=== PATIENT | female | born 1950 | race Caucasian/White ===

== ENCOUNTER 2017-11-28 07:14 | Inpatient (IN) ==
[2017-11-28] MEDS ORDERED: Bisacodyl 10 MG Supp RECTAL PRN (14:38)
[2017-11-28] MEDS ORDERED: Temazepam 15 MG Capsule PO PRN (14:38)
[2017-11-28] MEDS ORDERED: Dextrose 50% in Water 50 ML Vial IV.PUSH PRN (14:38)
--- NOTE | 2017-11-28 15:41 | P.HPIM ---
History of Present Illness Primary Care Physician: UNKNOWN Chief Complaint: Pain/fall History of Present Illness: The patient is a 67-year-old female with a past medical history of dementia, diabetes and hypertension who is presenting to the hospital after a fall. The patient says that she picked up her dog, who happens to have a history of seizures, and tripped on something. She said she hit the fireplace on the way down. She said that she felt too weak to get back up. She says her was there when she fell but he has a bad back and was unable to help her up. The patient's called for an ambulance. The patient says she is experiencing 10 out of 10 pain in her right shoulder. She was wondering if she would be having surgery today. Her says she recently had her tooth pulled a couple of days ago and she is on antibiotics for that. The patient says that she has been urinating frequently. Inpatient Certification: I certify that the inpatient services were ordered in accordance with Medicare regulations governing the order. This includes certification that hospital inpatient services are reasonable and necessary and in the case of services not specified as inpatient-only under 42 CFR 419.22(n), that they are appropriately provided as inpatient services in accordance to with the 2-midnight benchmark under 43 CFR 412.3(e) Estimated Total Length of Stay (Days): 3 Plans for Post Hospital Care: Not yet determined Review of Systems All other systems reviewed negative except as stated in HPI [facility] - History History Provided By: Patient, Family Member - Medical History Medical History: Medical History (Last Updated 11/28/17 @ 15:39 by Jose Hackett DO) History of hysterectomy Dementia Diabetes Hyperlipidemia Hypertension Murmur, cardiac - Surgical History Surgical History: Surgical History (Last Updated 11/28/17 @ 15:39 by Jose Hackett DO) H/O exploratory laparotomy S/P cholecystectomy H/O tubal ligation H/O: section - Family History Family History: Family History (Last Updated 11/28/17 @ 15:39 by Jose Hacktet DO) Other Prostate cancer - Tobacco History Second Hand Smoke Exposure: No Tobacco Use In Past 30 Days: No Smoking Status: Never smoker - Alcohol History How Often Do You Have a Drink Containing Alcohol: Never - Substance Use History Substance History: No History of Abuse - Immunization History Tetanus Immunization: Unsure Hx Influenza Vaccine This Season: No Medications and Allergies Active Medications: Active Medications Al Hydroxide/Mg Hydroxide (Milk Of Magnesia Liq) 30 ml PO Q12H PRN PRN Reason: Mild Constipation Bisacodyl (Dulcolax Supp) 10 mg RECTAL DAILY PRN PRN Reason: SEVERE CONSITIPATION Dextrose (D50w Vial) 50 ml IV.PUSH UNSCH PRN PRN Reason: PER HYPOGLYCEMIA PROTOCOL Enalaprilat (Vasotec Inj) 1.25 mg IV.PUSH Q6H PRN PRN Reason: SBP> OR = 180, DBP> OR = 100 Last Admin: 11/28/17 15:09 Dose: 1.25 mg Glucagon (Glucagon Inj) 1 mg OTHER PRN PRN PRN Reason: for Hypoglycemia Protocol Insulin Aspart (Novolog Insulin Suppl Scale Inj) 0 unit SQ ACHS JÚNIOR; Protocol Lactulose (Lactulose Liq) 30 ml PO DAILY PRN PRN Reason: SEVERE CONSITIPATION Morphine Sulfate (Morphine Inj) 4 mg IV.PUSH Q4H PRN PRN Reason: BREAKTHROUGH PAIN Oxycodone HCl (Roxicodone) 5 mg PO Q4H PRN PRN Reason: PAIN SCALE 6 TO 10 Last Admin: 11/28/17 15:09 Dose: 5 mg Senna/Docusate Sodium (Donna-Colace) 1 tab PO BID JÚNIOR Sennosides (Senokot) 17.2 mg PO Q12H PRN PRN Reason: Moderate Constipation Temazepam (Restoril) 15 mg PO HS PRN PRN Reason: INSOMNIA Allergies Allergy/AdvReac Type Severity Reaction Status Date / Time penicillin G Allergy Rash Verified 11/28/17 07:22 Home Medications Medication Instructions Recorded Confirmed Type aspirin 81 mg PO DAILY 11/28/17 11/28/17 History carvedilol 12.5 mg PO BID 11/28/17 11/28/17 History folic acid 0.4 mg PO DAILY 11/28/17 11/28/17 History furosemide 20 mg PO DAILY 11/28/17 11/28/17 History insulin glargine [Lantus U-100 40 unit SUB-Q DAILY 11/28/17 11/28/17 History Insulin] isosorbide mononitrate 60 mg PO DAILY 11/28/17 11/28/17 History levothyroxine 75 mcg PO DAILY 11/28/17 11/28/17 History memantine 10 mg PO BID 11/28/17 11/28/17 History rosuvastatin 40 mg PO DAILY 11/28/17 11/28/17 History telmisartan 80 mg PO DAILY 11/28/17 11/28/17 History Exam Vital signs: Vital Signs 11/28/17 14:00 Temperature 98.7 F Pulse Rate 69 Blood Pressure 207/81 H Pulse Oximetry 93 L Intake & Output 11/27/17 11/28/17 11/28/17 18:59 06:59 18:59 Other: Date of Last Bowel Movement 11/27/17 Narrative: GENERAL: No acute distress SKIN: Focused skin assessment warm/dry. HEAD: Atraumatic. Normocephalic. EYES: Pupils equal and round. No scleral icterus. No injection or drainage. ENT: No nasal bleeding or discharge. Mucous membranes pink and moist. NECK: Trachea midline. No JVD. No cervical spine tenderness full painless range of motion of the neck. CARDIOVASCULAR: Regular rate and rhythm. Grade 2 murmur appreciated. RESPIRATORY: No accessory muscle use. Clear to auscultation. Breath sounds equal bilaterally. GASTROINTESTINAL: Abdomen soft, non-tender, nondistended. Hepatic and splenic margins not palpable. MUSCULOSKELETAL: Patient is in a sling. She has tenderness in her right anterior shoulder with limited range of motion due to pain. There is also some minimal tenderness in the right groin. NEUROLOGICAL: Awake and alert. No obvious cranial nerve deficits. Motor grossly within normal limits. Normal speech. Mild confusion. PSYCHIATRIC: Appropriate mood and affect; insight and judgment normal. Caprini VTE Risk Assessment Caprini VTE Risk Assessment: Moderate/High Risk (score >= 2) Caprini Risk Assessment Model: Point Value = 1 Point Value = 2 Point Value = 3 Point Value = 5 Age 41-60 Minor surgery BMI > 25 kg/m2 Swollen legs Varicose veins or History of unexplained or recurrent spontaneous Oral contraceptives or hormone replacement Sepsis (< 1 month) Serious lung disease, including pneumonia (< 1 month) Abnormal pulmonary function Acute myocardial infarction Congestive heart failure (< 1 month) History of inflammatory bowel disease Medical patient at bed rest Age 61-74 Arthroscopic surgery Major open surgery (> 45 min) Laparoscopic surgery (> 45 min) Malignancy Confined to bed (> 72 hours) Immobilizing plaster cast Central venous access Age >= 75 History of VTE Family history of VTE Factor V Leiden Prothrombin [id number] Lupus anticoagulant Anticardiolipin antibodies Elevated serum homocysteine Heparin-induced thrombocytopenia Other congenital or acquired thrombophilia Stroke (< 1 month) Elective arthroplasty Hip, pelvis, or leg fracture Acute spinal cord injury (< 1 month) Prophylaxis Regimen: Total Risk Factor Score Risk Level Prophylaxis Regimen 0-1 Low Early ambulation 2 Moderate Order ONE of the following: *Sequential Compression Device (SCD) *Heparin 5000 units SQ BID 3-4 Higher Order ONE of the following medications: *Heparin 5000 units SQ TID *Enoxaparin/Lovenox 40 mg SQ daily (WT < 150 kg, CrCl > 30 mL/min) *Enoxaparin/Lovenox 30 mg SQ daily (WT < 150 kg, CrCl > 10-29 mL/min) *Enoxaparin/Lovenox 30 mg SQ BID (WT < 150 kg, CrCl > 30 mL/min) AND/OR *Sequential Compression Device (SCD) 5 or more Highest Order ONE of the following medications: *Heparin 5000 units SQ TID (Preferred with Epidurals) *Enoxaparin/Lovenox 40 mg SQ daily (WT < 150 kg, CrCl > 30 mL/min) *Enoxaparin/Lovenox 30 mg SQ daily (WT < 150 kg, CrCl > 10-29 mL/min) *Enoxaparin/Lovenox 30 mg SQ BID (WT < 150 kg, CrCl > 30 mL/min) AND *Sequential Compression Device (SCD) Assessment and Plan - Plan Fractures S/p mechanical fall at home. Imaging revealed: Comminuted displaced fracture of the humeral head with fracture fragments of the humeral head displaced posteriorly; Right superior pubic ramus fracture, nondisplaced. - orthopedic surgery consult pending. - keep the pt NPO with IVFs. - anticoagulation and weightbearing per surgery. - pain control with a bowel regimen. - rehab efforts following surgery. - incentive spirometry. HTN Blood pressure exacerbated by pain. - pain control. - Vasotec as needed. - resume home regimen. Renal insufficiency/Hyponatremia Unsure of baseline. May be s/t dehydration. - IVFs and monitor BMP. Recent tooth extraction Currently on clindamycin. - resume antibiotic regimen. Dementia Chronic. - continue home regimen. PPx: Per surgery Code Status: Full Discussed Condition With: Pt, pt's , nurse, ER physician H&P: Quality - VTE Deep Vein Thrombosis/Pulmonary Embolism Present on Admission: No
[2017-11-28] MEDS: Insulin NovoLOG Aspart Correctional Sugar Inj SQ SCH ×2 (16:37→20:37)
[2017-11-28] MEDS: Sod Chloride 0.9% Inj 1,000 ML IV.CONT SCH ×2 (16:37→20:36)
[2017-11-28] MEDS: Morphine Inj 4 MG/ML Vial IV.PUSH PRN ×2 (16:43→20:18)
[2017-11-28] MEDS: Senna/Docusate Sodium 8.6/50 MG Tablet PO SCH (20:19)
[2017-11-28] MEDS: Carvedilol 12.5 MG Tablet PO SCH (20:19)
[2017-11-29] MEDS ORDERED: Chlorhexidine Gluconate 2% 1 Pack (2 Cloths) TOPICAL SCH (02:30)
[2017-11-29] MEDS ORDERED: Sodium Chlor 0.9% Inj 500 ML IV.SIG SCH (03:00)
[2017-11-29] MEDS: Sod Chloride 0.9% Inj 1,000 ML IV.CONT SCH (04:14)
[2017-11-29] MEDS: LEVOTHYROXIN PO SCH (05:27)
[2017-11-29] MEDS ORDERED: Levothyroxine 75 MCG Tablet PO SCH (06:00)
--- NOTE | 2017-11-29 06:53 | P.PNOP ---
Subjective Interval history: Slip and fall yesterday with dog. She has some confusion this morning. She complains of right shoulder pain. No other complaints Physical Exam Vital signs: Vital Signs 11/28/17 14:00 11/28/17 15:39 11/28/17 16:00 Temperature 98.7 F 98.1 F Pulse Rate 69 70 Respiratory Rate 18 24 Blood Pressure 207/81 H 160/99 H Pulse Oximetry 93 L 70 L 11/28/17 16:45 11/28/17 19:00 11/28/17 21:00 Temperature 97.5 F L Pulse Rate 68 Respiratory Rate 18 17 Blood Pressure 194/81 H 178/79 H Pulse Oximetry 98 11/29/17 00:20 11/29/17 03:47 Temperature 97.9 F 97.8 F Pulse Rate 66 69 Respiratory Rate 18 18 Blood Pressure 148/69 H 160/70 H Pulse Oximetry 95 96 Intake & Output 11/28/17 11/28/17 11/29/17 06:59 18:59 06:59 Intake Total 450 / 450 0 / 0 Output Total 525 / 525 1075 / 1075 Balance -75 / -75 -1075 / -1075 Weight 91.626 kg 91.6 kg Intake: Oral 450 / 450 0 / 0 Output: Urine 525 / 525 1075 / 1075 Other: Date of Last Bowel Movement 11/27/17 11/27/17 # Bowel Movements 0 Weight On Admission 91.626 kg Narrative: Right upper extremity: Skin is intact. Moderate swelling. Pain to palpation and movement of proximal humerus. No pain with elbow wrist or fingers. Distally intact sensation full extension flexion of fingers. Left upper extremity: Full range of motion neurovascularly intact Bilateral lower extremities: Full range of motion and neurovascularly intact - Urinary Catheter Management Indwelling Urethral Catheter Cath placed during this visit: yes Reason for continuing: Hourly intake/output Insertion date: 11/28/17 Insertion time: 15:30 Results - Labs Laboratory Results - last 24 hr 11/28/17 11/28/17 16:29 20:27 POC Glucose 201 H 198 H Assessment and Plan - Assessment and Plan Right proximal humerus fracture Nonweightbearing right upper extremity Orthotec for application of sling and swath Treatment options discussed which include conservative measures with sling and swath and hanging arm cast in office, open reduction internal fixation and right shoulder replacement. At this time given the alignment and activity level conservative measures are reasonable treatment with comorbidity of diabetes. She wishes to talk to her at this time concerning the matter. If decision to treat conservatively is decided on, she will remain in sling and swath at all times with no range of motion and nonweightbearing. She will follow-up in office in 1 week for repeat x-rays and probable hanging arm cast application. She will remain n.p.o. for the time being.
--- NOTE | 2017-11-29 07:56 | MB ---
cc: Stalin Escoto MD DATE: 11/29/2017 REASON FOR CONSULTATION: Right proximal humerus fracture. HISTORY OF PRESENT ILLNESS: Angeli is a 67-year-old female who has multiple medical problems including early dementia, diabetes and hypertension. She states that she slipped and fell at home. She picked up her dog to move it. She was putting the dog down when she lost her balance. She fell and landed on her right side. She had immediate right shoulder pain. She denies dizziness, syncope or loss of consciousness. Her only complaint is her right shoulder. Pain is worse with movement and is improved with rest. PAST MEDICAL HISTORY: Illnesses, diabetes, hypertension, high cholesterol, heart murmur and early dementia. PAST SURGICAL HISTORY: Hysterectomy, exploratory laparotomy, cholecystectomy, tubal ligation and . FAMILY HISTORY: Positive for prostate cancer in her father. ALLERGIES: PENICILLIN. SOCIAL HISTORY: The patient denies alcohol, tobacco or drug use. MEDICATIONS: Include: 1. Aspirin. 2. Carvedilol. 3. Folic acid. 4. Lasix. 5. Insulin. 6. Isosorbide mononitrate. 7. Levothyroxine. 8. Amantadine. Please see EMR for a complete list of inpatient medications. REVIEW OF SYSTEMS: The patient denies fevers, chills, weight loss, headache, visual changes, hearing loss, chest pain, palpitations, shortness of breath, nausea, vomiting, urinary changes, diarrhea, bowel changes, neck pain, back pain, skin rashes, weakness of extremities, numbness of extremities, anxiety or depression. She complains of right shoulder pain. The pain is worse with movement. LABORATORY DATA: The patient has a blood glucose of 198. X-RAYS: X-rays right shoulder reviewed. X-rays reveal a partially displaced right proximal humerus 3-part fracture. PHYSICAL EXAMINATION: GENERAL: The patient is a pleasant 67-year-old female. She is awake and alert. She does have memory trouble and has trouble speaking some words. She is mildly overweight. She is in no acute distress. VITAL SIGNS: Temperature 97.8, pulse 69, respirations 18, blood pressure 160/70, O2 saturations 100% on room air. HEAD: The patient is normocephalic. EYES: Pupils are equal. NECK: Soft, nontender. The trachea is in the midline. ABDOMEN: Soft, nontender, nondistended. EXTREMITIES: Examination of the right upper extremity reveals some swelling and bruising on her shoulder. She has pain with any shoulder motion. She has no tenderness on her elbow, wrist or fingers. She has intact sensation in all fingers. Skin is intact. She has good capillary refill in her fingers. Examination of her left arm reveals no pain with shoulder, elbow or wrist motion. Skin is intact. Radial pulses palpable. Sensation is intact. Examination of bilateral lower extremities reveals no pain with hip, knee or ankle motion. Skin is intact. Dorsalis pedis pulses are palpable. IMPRESSION: 1. Early dementia. 2. Diabetes. 3. Hypertension. 4. Partially displaced right proximal humerus fracture. PLAN: Treatment options were discussed with the patient, as well as her . I discussed treatment options including nonsurgical, surgical treatment with open reduction internal fixation, and surgical treatment with shoulder replacement. Risks of surgery were discussed including bleeding, infection, injury to arteries, nerves or blood vessels, nonunion, malunion, painful hardware, loss of motion, avascular necrosis, shoulder dislocation as well as medical complications including blood clot, stroke, heart attack and . All questions were answered. Given the patient's age, overall health condition, and relatively sedentary lifestyle, I feel that she would do relatively well with nonoperative treatment. The patient and her would like to discuss this further between themselves. I will followup with the patient later today or tomorrow for a final decision regarding surgery. All questions were answered. A mid-level provider in my office, nurse practitioner or PA, may see this patient on a follow-up basis and continue to implement the objective of this plan including: Starting or adjusting medications, injections of muscle, tendon, bursa or joints, cast application, orthotic or brace application, physical therapy, further radiographic studies including x-ray, MRI, CT, ultrasounds or bone scan, vascular studies, neurologic studies, or other specialist consultations, and proceeding with surgical management as appropriate. MD MEGAN Hutcihson/YESI , 07:35 AM , 07:55 AM
[2017-11-29] MEDS: Carvedilol 12.5 MG Tablet PO SCH ×2 (08:26→22:03)
[2017-11-29] MEDS: Insulin NovoLOG Aspart Correctional Sugar Inj SQ SCH ×4 (08:26→22:04)
[2017-11-29] MEDS: Senna/Docusate Sodium 8.6/50 MG Tablet PO SCH ×2 (08:27→22:04)
[2017-11-29] MEDS: Folic Acid 1 MG Tablet PO SCH (08:27)
[2017-11-29] MEDS: Isosorbide Mononitrate 60 MG ER 24HR Tablet (Imdur) PO SCH (08:27)
[2017-11-29] MEDS ORDERED: Non-Formulary Drug (Rosuvastatin [Rosuvastatin] 40 MG) PO SCH (09:00)
[2017-11-29] MEDS ORDERED: TELMISARTAN 80 MG PO SCH (09:00)
[2017-11-29 10:51] LABS: Hematocrit 29.4 % (35.0-46.0); Hemoglobin 9.8 gm/dL (11.6-15.3); Mean Corpuscular HGB Conc 33.4 % (32.0-36.0); Mean Corpuscular Hemoglobin 26.2 pg (27.0-34.0); Mean Corpuscular Volume 78.3 fL (80.0-100.0); Platelet Count 191 th/mm3 (150-450); Red Blood Count 3.75 mil/mm3 (4.00-5.30); Red Cell Distribution Width 14.2 % (11.6-17.2); White Blood Count 6.1 th/mm3 (4.0-11.0)
[2017-11-29 10:53] LABS: Calcium 7.6 mg/dL (8.5-10.1); Potassium 4.6 meq/L (3.5-5.1)
[2017-11-29] MEDS: Insulin Detemir Inj 1,000 UNIT/10 ML Vial SQ SCH (12:11)
[2017-11-29] MEDS: Morphine Inj 4 MG/ML Vial IV.PUSH PRN (13:18)
--- NOTE | 2017-11-29 13:28 | P.PNIM ---
Subjective Interval history: The patient was thinking that she would rather not have surgery. The patient's states that he talked with the surgeon earlier this morning about the options. The patient still has a lot of pain in her right shoulder. She has a lot of swelling as well. Discussed with nursing. Physical Exam Vital signs: Vital Signs 11/28/17 14:00 11/28/17 15:39 11/28/17 16:00 Temperature 98.7 F 98.1 F Pulse Rate 69 70 Respiratory Rate 18 24 Blood Pressure 207/81 H 160/99 H Pulse Oximetry 93 L 70 L 11/28/17 16:45 11/28/17 19:00 11/28/17 21:00 Temperature 97.5 F L Pulse Rate 68 Respiratory Rate 18 17 Blood Pressure 194/81 H 178/79 H Pulse Oximetry 98 11/29/17 00:20 11/29/17 03:47 11/29/17 08:00 Temperature 97.9 F 97.8 F 98.2 F Pulse Rate 66 69 72 Respiratory Rate 18 18 20 Blood Pressure 148/69 H 160/70 H 187/82 H Pulse Oximetry 95 96 93 L Intake & Output 11/28/17 11/29/17 11/29/17 18:59 06:59 18:59 Intake Total 450 / 450 0 / 0 Output Total 525 / 525 1075 / 1075 Balance -75 / -75 -1075 / -1075 Weight 91.626 kg 91.6 kg Intake: Oral 450 / 450 0 / 0 Output: Urine 525 / 525 1075 / 1075 Other: Date of Last Bowel Movement 11/27/17 11/27/17 11/27/17 # Bowel Movements 0 Weight On Admission 91.626 kg Narrative: GENERAL: No acute distress SKIN: Focused skin assessment warm/dry. HEAD: Atraumatic. Normocephalic. EYES: Pupils equal and round. No scleral icterus. No injection or drainage. ENT: No nasal bleeding or discharge. Mucous membranes pink and moist. NECK: Trachea midline. No JVD. No cervical spine tenderness full painless range of motion of the neck. CARDIOVASCULAR: Regular rate and rhythm. Grade 2 murmur appreciated. RESPIRATORY: No accessory muscle use. Clear to auscultation. Breath sounds equal bilaterally. GASTROINTESTINAL: Abdomen soft, non-tender, nondistended. Hepatic and splenic margins not palpable. MUSCULOSKELETAL: Patient is in a sling. She has tenderness in her right anterior shoulder with limited range of motion due to pain. There is also some minimal tenderness in the right groin. NEUROLOGICAL: Awake and alert. No obvious cranial nerve deficits. Motor grossly within normal limits. Normal speech. Mild confusion. PSYCHIATRIC: Appropriate mood and affect; insight and judgment normal. - Urinary Catheter Management Indwelling Urethral Catheter Cath placed during this visit: yes Reason for continuing: Hourly intake/output Insertion date: 11/28/17 Insertion time: 15:30 Results - Labs CBC & Chem 7: 11/29/17 09:20 11/29/17 09:20 Laboratory Results - last 24 hr 11/28/17 11/28/17 11/29/17 16:29 20:27 08:21 WBC RBC Hgb Hct MCV MCH MCHC RDW Plt Count MPV Sodium Potassium Chloride Carbon Dioxide Anion Gap BUN Creatinine Estimated GFR POC Glucose 201 H 198 H 287 H Random Glucose Calcium 11/29/17 11/29/17 11/29/17 09:20 09:20 12:07 WBC 6.1 RBC 3.75 L Hgb 9.8 L Hct 29.4 L MCV 78.3 L MCH 26.2 L MCHC 33.4 RDW 14.2 Plt Count 191 MPV 8.0 Sodium 134 L Potassium 4.6 Chloride 102 Carbon Dioxide 19.0 L Anion Gap 13 BUN 19 H Creatinine 1.32 H Estimated GFR 40 L POC Glucose 223 H Random Glucose 230 H Calcium 7.6 L Assessment and Plan - Plan Fractures S/p mechanical fall at home. Imaging revealed: Comminuted displaced fracture of the humeral head with fracture fragments of the humeral head displaced posteriorly; Right superior pubic ramus fracture, nondisplaced. Orthopedic surgery consult appreciated. - anticoagulation and weightbearing per surgery. - pain control with a bowel regimen. - PT/OT. - incentive spirometry. DM Glucose levels have been elevated. On Lantus as an outpt. - Levemir 20 units daily. - insulin sliding scale. - diabetic diet. HTN Blood pressure exacerbated by pain. - pain control. - Vasotec as needed. - resumed home regimen. Renal insufficiency/Hyponatremia Unsure of baseline. May be s/t dehydration. - IVFs and monitor BMP. Recent tooth extraction Currently on clindamycin. - resume antibiotic regimen. Dementia Chronic. - continue home regimen. PPx: Per surgery
[2017-11-29] MEDS: Lactobacillus Acidophilus/L. Spores Tablet PO SCH (17:32)
[2017-11-30] MEDS: Morphine Inj 4 MG/ML Vial IV.PUSH PRN ×2 (01:20→05:59)
[2017-11-30 06:22] LABS: Hematocrit 28.9 % (35.0-46.0); Hemoglobin 9.8 gm/dL (11.6-15.3); Mean Corpuscular HGB Conc 33.8 % (32.0-36.0); Mean Corpuscular Hemoglobin 26.4 pg (27.0-34.0); Mean Platelet Volume 7.7 fL (7.0-11.0); Platelet Count 193 th/mm3 (150-450); Red Cell Distribution Width 14.2 % (11.6-17.2); White Blood Count 7.9 th/mm3 (4.0-11.0)
[2017-11-30 06:30] LABS: Calcium 7.9 mg/dL (8.5-10.1); Carbon Dioxide 22.3 meq/L (21.0-32.0); Potassium 4.3 meq/L (3.5-5.1)
[2017-11-30] MEDS: LEVOTHYROXIN PO SCH (07:42)
[2017-11-30] MEDS: Folic Acid 1 MG Tablet PO SCH (09:13)
[2017-11-30] MEDS: Carvedilol 12.5 MG Tablet PO SCH ×2 (09:13→23:05)
[2017-11-30] MEDS: Senna/Docusate Sodium 8.6/50 MG Tablet PO SCH ×2 (09:13→23:05)
[2017-11-30] MEDS: Isosorbide Mononitrate 60 MG ER 24HR Tablet (Imdur) PO SCH (09:14)
[2017-11-30] MEDS: Lactobacillus Acidophilus/L. Spores Tablet PO SCH ×3 (09:14→17:09)
[2017-11-30] MEDS: Insulin NovoLOG Aspart Correctional Sugar Inj SQ SCH ×4 (09:17→23:06)
[2017-11-30] MEDS: Insulin Detemir Inj 1,000 UNIT/10 ML Vial SQ SCH (09:18)
--- NOTE | 2017-11-30 09:38 | P.PNOP ---
Subjective Interval history: Resting comfortably with no new complaints. States she is comfortable with sling and swath Physical Exam Vital signs: Vital Signs 11/29/17 12:00 11/29/17 20:40 11/30/17 00:00 Temperature 98.2 F 98.0 F 97.8 F Pulse Rate 65 66 72 Respiratory Rate 18 16 17 Blood Pressure 131/70 189/79 H 170/78 H Pulse Oximetry 96 98 98 11/30/17 05:25 11/30/17 08:00 Temperature 98.1 F 98.3 F Pulse Rate 71 70 Respiratory Rate 17 17 Blood Pressure 190/83 H 168/76 H Pulse Oximetry 99 96 Intake & Output 11/29/17 11/30/17 11/30/17 18:59 06:59 18:59 Intake Total 780 / 780 360 / 360 Output Total 300 / 300 750 / 750 Balance 480 / 480 -390 / -390 Weight 91.6 kg Intake: Oral 780 / 780 360 / 360 Output: Urine 300 / 300 750 / 750 Other: Date of Last Bowel Movement 11/27/17 11/27/17 # Bowel Movements 0 Narrative: Right upper extremity: Sling and swath in place. Moderate swelling to shoulder. She has intact sensation of the radial ulnar median nerve distributions with good capillary refills. She is able to fully extend her fingers make a fist. - Urinary Catheter Management Indwelling Urethral Catheter Cath placed during this visit: yes Reason for continuing: Other continuation reason Insertion date: 11/28/17 Insertion time: 15:30 Results - Labs CBC & Chem 7: 11/30/17 05:21 11/30/17 05:31 Laboratory Results - last 24 hr 11/29/17 11/29/17 11/29/17 09:20 09:20 12:07 WBC 6.1 RBC 3.75 L Hgb 9.8 L Hct 29.4 L MCV 78.3 L MCH 26.2 L MCHC 33.4 RDW 14.2 Plt Count 191 MPV 8.0 Sodium 134 L Potassium 4.6 Chloride 102 Carbon Dioxide 19.0 L Anion Gap 13 BUN 19 H Creatinine 1.32 H Estimated GFR 40 L POC Glucose 223 H Random Glucose 230 H Calcium 7.6 L 11/29/17 11/29/17 11/30/17 17:25 21:32 05:21 WBC 7.9 RBC 3.70 L Hgb 9.8 L Hct 28.9 L MCV 78.0 L MCH 26.4 L MCHC 33.8 RDW 14.2 Plt Count 193 MPV 7.7 Sodium Potassium Chloride Carbon Dioxide Anion Gap BUN Creatinine Estimated GFR POC Glucose 238 H 233 H Random Glucose Calcium 11/30/17 11/30/17 05:31 07:34 WBC RBC Hgb Hct MCV MCH MCHC RDW Plt Count MPV Sodium 133 L Potassium 4.3 Chloride 99 Carbon Dioxide 22.3 Anion Gap 12 BUN 24 H Creatinine 1.37 H Estimated GFR 38 L POC Glucose 239 H Random Glucose 197 H Calcium 7.9 L Assessment and Plan - Assessment and Plan Right proximal humerus fracture Nonweightbearing right upper extremity sling and swath at all times no range of motion We will continue to treat this nonoperatively. We will have her return in 1 week for follow-up x-rays and continued treatment. It is likely we will convert her to a hanging arm cast at that time. She is orthopedically cleared for discharge once a home plan is secured
--- NOTE | 2017-11-30 15:04 | P.PNIM ---
Subjective Interval history: The patient was resting in a chair. Her was at the bedside. The patient has not urinated since having the catheter removed. She had severe pain earlier but that has improved with medication. Discussed with nursing. Physical Exam Vital signs: Vital Signs 11/29/17 20:40 11/30/17 00:00 11/30/17 05:25 Temperature 98.0 F 97.8 F 98.1 F Pulse Rate 66 72 71 Respiratory Rate Blood Pressure 189/79 H 170/78 H 190/83 H Pulse Oximetry 98 98 99 11/30/17 08:00 11/30/17 12:00 11/30/17 14:43 Temperature 98.3 F 98.1 F Pulse Rate 70 70 Respiratory Rate Blood Pressure 168/76 H 128/60 Pulse Oximetry 96 95 Intake & Output 11/29/17 11/30/17 11/30/17 18:59 06:59 18:59 Intake Total 780 / 780 360 / 360 Output Total 300 / 300 750 / 750 Balance 480 / 480 -390 / -390 Weight 91.6 kg Intake: Oral 780 / 780 360 / 360 Output: Urine 300 / 300 750 / 750 Other: Date of Last Bowel Movement 11/27/17 11/27/17 11/27/17 # Bowel Movements 0 Narrative: GENERAL: No acute distress SKIN: Focused skin assessment warm/dry. HEAD: Atraumatic. Normocephalic. EYES: Pupils equal and round. No scleral icterus. No injection or drainage. ENT: No nasal bleeding or discharge. Mucous membranes pink and moist. NECK: Trachea midline. No JVD. No cervical spine tenderness full painless range of motion of the neck. CARDIOVASCULAR: Regular rate and rhythm. Grade 2 murmur appreciated. RESPIRATORY: No accessory muscle use. Clear to auscultation. Breath sounds equal bilaterally. GASTROINTESTINAL: Abdomen soft, non-tender, nondistended. Hepatic and splenic margins not palpable. MUSCULOSKELETAL: Patient is in a sling. She has tenderness in her right anterior shoulder with limited range of motion due to pain. There is also some minimal tenderness in the right groin. NEUROLOGICAL: Awake and alert. No obvious cranial nerve deficits. Motor grossly within normal limits. Normal speech. Mild confusion. PSYCHIATRIC: Appropriate mood and affect; insight and judgment normal. - Urinary Catheter Management Indwelling Urethral Catheter Cath placed during this visit: yes Reason for continuing: Other continuation reason Insertion date: 11/28/17 Insertion time: 15:30 Results - Labs CBC & Chem 7: 11/30/17 05:21 11/30/17 05:31 Laboratory Results - last 24 hr 11/29/17 11/29/17 11/30/17 17:25 21:32 05:21 WBC 7.9 RBC 3.70 L Hgb 9.8 L Hct 28.9 L MCV 78.0 L MCH 26.4 L MCHC 33.8 RDW 14.2 Plt Count 193 MPV 7.7 Sodium Potassium Chloride Carbon Dioxide Anion Gap BUN Creatinine Estimated GFR POC Glucose 238 H 233 H Random Glucose Calcium 11/30/17 11/30/17 11/30/17 05:31 07:34 11:33 WBC RBC Hgb Hct MCV MCH MCHC RDW Plt Count MPV Sodium 133 L Potassium 4.3 Chloride 99 Carbon Dioxide 22.3 Anion Gap 12 BUN 24 H Creatinine 1.37 H Estimated GFR 38 L POC Glucose 239 H 307 H Random Glucose 197 H Calcium 7.9 L Assessment and Plan - Plan Fractures S/p mechanical fall at home. Imaging revealed: Comminuted displaced fracture of the humeral head with fracture fragments of the humeral head displaced posteriorly; Right superior pubic ramus fracture, nondisplaced. Orthopedic surgery consult appreciated. - anticoagulation and weightbearing per surgery. - pain control with a bowel regimen. - PT/OT. - incentive spirometry. DM Glucose levels have been elevated. On Lantus as an outpt. - Levemir 20 units daily, 10 units HS. 7 units Regular insulin now. - insulin sliding scale. - diabetic diet. HTN Blood pressure exacerbated by pain. - pain control. - Vasotec as needed. - resumed home regimen. Renal insufficiency/Hyponatremia Unsure of baseline. May be s/t dehydration. - IVFs and monitor BMP. - ADAT. Recent tooth extraction Currently on clindamycin. - resume antibiotic regimen. Dementia Chronic. - continue home regimen. Urinary retention The pt has not yet voided without the Lawson. - straight cath as needed. - replace Lawson if needed. PPx: Per surgery
[2017-11-30] MEDS ORDERED: Sod Chloride 0.9% Inj 1,000 ML IV.CONT SCH (15:15)
[2017-11-30] MEDS ORDERED: Insulin Detemir Inj 1,000 UNIT/10 ML Vial SQ SCH (21:00)
[2017-12-01 05:23] LABS: Hematocrit 25.1 % (35.0-46.0); Hemoglobin 8.5 gm/dL (11.6-15.3); Mean Corpuscular Volume 76.6 fL (80.0-100.0); Mean Platelet Volume 7.7 fL (7.0-11.0); Platelet Count 179 th/mm3 (150-450); Red Blood Count 3.28 mil/mm3 (4.00-5.30); Red Cell Distribution Width 14.4 % (11.6-17.2); White Blood Count 9.1 th/mm3 (4.0-11.0)
[2017-12-01 05:31] LABS: Calcium 7.9 mg/dL (8.5-10.1); Carbon Dioxide 23.4 meq/L (21.0-32.0); Potassium 4.6 meq/L (3.5-5.1)
--- NOTE | 2017-12-01 07:03 | P.PNOP ---
Subjective Interval history: Continue to have some difficulty ambulating. Physical Exam Vital signs: Vital Signs 11/30/17 08:00 11/30/17 12:00 11/30/17 14:43 Temperature 98.3 F 98.1 F Pulse Rate 70 70 Respiratory Rate 17 18 16 Blood Pressure 168/76 H 128/60 Pulse Oximetry 96 95 11/30/17 15:49 11/30/17 17:44 11/30/17 20:00 Temperature 97.3 F L 97.6 F Pulse Rate 67 70 Respiratory Rate 16 16 16 Blood Pressure 106/55 L 116/58 L Pulse Oximetry 91 L 95 12/01/17 00:35 Temperature 97.9 F Pulse Rate 75 Respiratory Rate 19 Blood Pressure 180/79 H Pulse Oximetry 96 Intake & Output 11/30/17 12/01/17 12/01/17 18:59 06:59 18:59 Intake Total 406 / 406 Output Total 750 / 750 Balance -344 / -344 Weight 91.6 kg Intake: IV 46 / 46 NS Inj 1,000 ML @ 100 mls/hr IV 46 / 46 .CONT .Q10H JÚNIOR Rx#:[id number] Oral 360 / 360 Output: Urine 750 / 750 Other: Date of Last Bowel Movement 11/27/17 11/27/17 # Bowel Movements 0 Narrative: GENERAL: No acute distress SKIN: Focused skin assessment warm/dry. HEAD: Atraumatic. Normocephalic. EYES: Pupils equal and round. No scleral icterus. No injection or drainage. ENT: No nasal bleeding or discharge. Mucous membranes pink and moist. NECK: Trachea midline. No JVD. No cervical spine tenderness full painless range of motion of the neck. CARDIOVASCULAR: Regular rate and rhythm. Grade 2 murmur appreciated. RESPIRATORY: No accessory muscle use. Clear to auscultation. Breath sounds equal bilaterally. GASTROINTESTINAL: Abdomen soft, non-tender, nondistended. Hepatic and splenic margins not palpable. MUSCULOSKELETAL: Patient is in a sling and swath she has tenderness in her right anterior shoulder with limited range of motion due to pain. Distally intact sensation with good capillary refills. She has full extension flexion of all fingers She has mild tenderness with passive range of motion of the hip. She has tenderness to palpation over the pubic rami. Distally she has intact sensation with active dorsiflexion plantar flexion of foot NEUROLOGICAL: Awake and alert. No obvious cranial nerve deficits. Motor grossly within normal limits. Normal speech. Mild confusion. PSYCHIATRIC: Appropriate mood and affect; insight and judgment normal. - Urinary Catheter Management Indwelling Urethral Catheter Cath placed during this visit: yes Reason for continuing: Other continuation reason Insertion date: 11/28/17 Insertion time: 15:30 Results - Labs CBC & Chem 7: 12/01/17 04:49 12/01/17 04:49 Laboratory Results - last 24 hr 11/30/17 11/30/17 11/30/17 07:34 11:33 15:53 WBC RBC Hgb Hct MCV MCH MCHC RDW Plt Count MPV Sodium Potassium Chloride Carbon Dioxide Anion Gap BUN Creatinine Estimated GFR POC Glucose 239 H 307 H 321 H Random Glucose Calcium 11/30/17 12/01/17 12/01/17 21:16 04:49 04:49 WBC 9.1 RBC 3.28 L Hgb 8.5 L Hct 25.1 L MCV 76.6 L MCH 26.0 L MCHC 34.0 RDW 14.4 Plt Count 179 MPV 7.7 Sodium 132 L Potassium 4.6 Chloride 100 Carbon Dioxide 23.4 Anion Gap 9 BUN 31 H Creatinine 1.56 H Estimated GFR 33 L POC Glucose 199 H Random Glucose 191 H Calcium 7.9 L Assessment and Plan - Assessment and Plan Right proximal humerus fracture Nonweightbearing right upper extremity sling and swath at all times no range of motion We will continue to treat this nonoperatively. We will have her return in 1 week for follow-up x-rays and continued treatment. It is likely we will convert her to a hanging arm cast at that time. Right superior pubic rami fracture Weightbearing as tolerated right lower extremity She is orthopedically cleared for discharge once a home plan is secured
[2017-12-01] MEDS: LEVOTHYROXIN PO SCH (07:13)
[2017-12-01] MEDS: Carvedilol 12.5 MG Tablet PO SCH ×2 (08:31→21:39)
[2017-12-01] MEDS: Folic Acid 1 MG Tablet PO SCH (08:32)
[2017-12-01] MEDS: Isosorbide Mononitrate 60 MG ER 24HR Tablet (Imdur) PO SCH (08:32)
[2017-12-01] MEDS: Senna/Docusate Sodium 8.6/50 MG Tablet PO SCH ×2 (08:32→21:35)
[2017-12-01] MEDS: Lactobacillus Acidophilus/L. Spores Tablet PO SCH ×3 (08:32→17:56)
[2017-12-01] MEDS: Insulin Detemir Inj 1,000 UNIT/10 ML Vial SQ SCH ×2 (08:46→21:38)
[2017-12-01] MEDS: Insulin NovoLOG Aspart Correctional Sugar Inj SQ SCH ×4 (08:46→21:36)
[2017-12-01] MEDS: Sod Chloride 0.9% Inj 1,000 ML IV.CONT SCH ×2 (14:13→23:54)
--- NOTE | 2017-12-01 14:38 | P.PNIM ---
Subjective Interval history: The patient was sitting up in a chair. Her was at the bedside. They were wondering if the patient would be transferred tomorrow to rehab. The patient says her pain is better. Discussed with nursing. Physical Exam Vital signs: Vital Signs 11/30/17 14:43 11/30/17 15:49 11/30/17 17:44 Temperature 97.3 F L Pulse Rate 67 Respiratory Rate 16 16 16 Blood Pressure 106/55 L Pulse Oximetry 91 L 11/30/17 20:00 12/01/17 00:35 12/01/17 08:00 Temperature 97.6 F 97.9 F 97.2 F L Pulse Rate 70 75 85 Respiratory Rate 16 19 19 Blood Pressure 116/58 L 180/79 H 180/82 H Pulse Oximetry 95 96 93 L 12/01/17 12:00 Temperature 97.9 F Pulse Rate 80 Respiratory Rate 17 Blood Pressure 177/80 H Pulse Oximetry 95 Intake & Output 11/30/17 12/01/17 12/01/17 18:59 06:59 18:59 Intake Total 406 / 406 720 / 720 Output Total 750 / 750 Balance -344 / -344 720 / 720 Weight 91.6 kg 91.8 kg Intake: IV 46 / 46 NS Inj 1,000 ML @ 100 mls/hr IV 46 / 46 .CONT .Q10H JÚNIOR Rx#:[id number] Oral 360 / 360 720 / 720 Output: Urine 750 / 750 Other: # Voids 2 Date of Last Bowel Movement 11/27/17 11/27/17 11/27/17 # Bowel Movements 0 0 Narrative: GENERAL: No acute distress SKIN: Focused skin assessment warm/dry. Pale. HEAD: Atraumatic. Normocephalic. EYES: Pupils equal and round. No scleral icterus. No injection or drainage. ENT: No nasal bleeding or discharge. Mucous membranes pink and moist. NECK: Trachea midline. No JVD. No cervical spine tenderness full painless range of motion of the neck. CARDIOVASCULAR: Regular rate and rhythm. Grade 2 murmur appreciated. RESPIRATORY: No accessory muscle use. Clear to auscultation. Breath sounds equal bilaterally. GASTROINTESTINAL: Abdomen soft, non-tender, nondistended. Hepatic and splenic margins not palpable. MUSCULOSKELETAL: Patient is in a sling. She has tenderness in her right anterior shoulder with limited range of motion due to pain. There is also some minimal tenderness in the right groin. NEUROLOGICAL: Awake and alert. No obvious cranial nerve deficits. Motor grossly within normal limits. Normal speech. Mild confusion. - Urinary Catheter Management Indwelling Urethral Catheter Cath placed during this visit: yes Reason for continuing: Other continuation reason Insertion date: 11/28/17 Insertion time: 15:30 Results - Labs CBC & Chem 7: 12/01/17 04:49 12/01/17 04:49 Laboratory Results - last 24 hr 11/30/17 11/30/17 12/01/17 15:53 21:16 04:49 WBC 9.1 RBC 3.28 L Hgb 8.5 L Hct 25.1 L MCV 76.6 L MCH 26.0 L MCHC 34.0 RDW 14.4 Plt Count 179 MPV 7.7 Sodium Potassium Chloride Carbon Dioxide Anion Gap BUN Creatinine Estimated GFR POC Glucose 321 H 199 H Random Glucose Calcium 12/01/17 12/01/17 04:49 08:31 WBC RBC Hgb Hct MCV MCH MCHC RDW Plt Count MPV Sodium 132 L Potassium 4.6 Chloride 100 Carbon Dioxide 23.4 Anion Gap 9 BUN 31 H Creatinine 1.56 H Estimated GFR 33 L POC Glucose 235 H Random Glucose 191 H Calcium 7.9 L Assessment and Plan - Plan Fractures S/p mechanical fall at home. Imaging revealed: Comminuted displaced fracture of the humeral head with fracture fragments of the humeral head displaced posteriorly; Right superior pubic ramus fracture, nondisplaced. Orthopedic surgery consult appreciated. - anticoagulation and weightbearing per surgery. - pain control with a bowel regimen. - PT/OT. - incentive spirometry. DM Glucose levels have been elevated. On Lantus as an outpt. - increase Levemir to 20 units BID, along with prandial insulin. - insulin sliding scale. - diabetic diet. HTN Blood pressure exacerbated by pain. - pain control. - clonidine as needed. - hold losartan s/t renal insufficiency. Add amlodipine 5 mg daily. Continue Coreg. Renal insufficiency/Hyponatremia Unsure of baseline. May be s/t dehydration. - IVFs and monitor BMP. - ADAT. - calculate FENa. - hold losartan. Recent tooth extraction Currently on clindamycin. - resume antibiotic regimen. Dementia Chronic. - continue home regimen. PPx: Per surgery
[2017-12-01] MEDS: amLODIPine 5 MG Tablet PO SCH (17:56)
[2017-12-01] MEDS: Polyethylene Glycol 3350 17 GM Packet PO SCH (17:57)
[2017-12-02] MEDS: LEVOTHYROXIN PO SCH (05:06)
[2017-12-02 05:46] LABS: Hemoglobin 9.5 gm/dL (11.6-15.3); Mean Corpuscular HGB Conc 33.8 % (32.0-36.0); Mean Corpuscular Hemoglobin 26.2 pg (27.0-34.0); Mean Corpuscular Volume 77.4 fL (80.0-100.0); Mean Platelet Volume 7.6 fL (7.0-11.0); Platelet Count 220 th/mm3 (150-450); Red Blood Count 3.61 mil/mm3 (4.00-5.30); White Blood Count 9.4 th/mm3 (4.0-11.0)
[2017-12-02 05:51] LABS: Calcium 8.2 mg/dL (8.5-10.1); Carbon Dioxide 24.8 meq/L (21.0-32.0); Potassium 4.5 meq/L (3.5-5.1)
--- NOTE | 2017-12-02 06:41 | P.PNOP ---
Subjective Interval history: Pain is controlled. No new complaints Physical Exam Vital signs: Vital Signs 12/01/17 08:00 12/01/17 12:00 12/01/17 16:00 Temperature 97.2 F L 97.9 F 98 F Pulse Rate 85 80 86 Respiratory Rate 18 Blood Pressure 180/82 H 177/80 H 175/79 H Pulse Oximetry 93 L 95 95 12/01/17 20:00 12/02/17 00:00 12/02/17 04:00 Temperature 98.8 F 97.4 F L 98.0 F Pulse Rate 76 76 73 Respiratory Rate 18 Blood Pressure 186/82 H 173/74 H 185/76 H Pulse Oximetry 94 L 94 L 98 Intake & Output 12/01/17 12/01/17 12/02/17 06:59 18:59 06:59 Intake Total 720 / 720 1081 / 1081 519 / 519 Output Total 1000 / 1000 Balance 720 / 720 1081 / 1081 -481 / -481 Weight 91.8 kg 92 kg Intake: IV 481 / 481 519 / 519 NS Inj 1,000 ML @ 125 mls/hr IV 481 / 481 519 / 519 .CONT .Q8H JÚNIOR Rx#:[id number] Oral 720 / 720 600 / 600 Output: Urine 1000 / 1000 Other: # Voids 2 5 3 Date of Last Bowel Movement 11/27/17 11/27/17 12/01/17 # Bowel Movements 0 1 1 Narrative: Right upper extremity: Sling reposition. Continued pain over proximal humerus. Distally intact sensation of the radial ulnar median nerve distributions with good capillary refills. Full extension flexion of all fingers Right groin pain. Mild tenderness with forward flexion and internal/external rotation of the hip passively. Distally intact sensation in the right lower extremity with active dorsiflexion and plantarflexion of foot - Urinary Catheter Management Indwelling Urethral Catheter Cath placed during this visit: yes Reason for continuing: Other continuation reason Insertion date: 11/28/17 Insertion time: 15:30 Results - Labs CBC & Chem 7: 12/02/17 04:45 12/02/17 04:45 Laboratory Results - last 24 hr 12/01/17 12/01/17 12/01/17 08:31 17:51 20:08 WBC RBC Hgb Hct MCV MCH MCHC RDW Plt Count MPV Sodium Potassium Chloride Carbon Dioxide Anion Gap BUN Creatinine Estimated GFR POC Glucose 235 H 314 H 231 H Random Glucose Calcium 12/02/17 12/02/17 04:45 04:45 WBC 9.4 RBC 3.61 L Hgb 9.5 L Hct 28.0 L MCV 77.4 L MCH 26.2 L MCHC 33.8 RDW 14.0 Plt Count 220 MPV 7.6 Sodium 137 Potassium 4.5 Chloride 105 Carbon Dioxide 24.8 Anion Gap 7 BUN 28 H Creatinine 1.27 H Estimated GFR 42 L POC Glucose Random Glucose 139 H Calcium 8.2 L Assessment and Plan - Assessment and Plan Right proximal humerus fracture Nonweightbearing right upper extremity sling and swath at all times no range of motion We will continue to treat this nonoperatively. We will have her return in 1 week for follow-up x-rays and continued treatment. It is likely we will convert her to a hanging arm cast at that time. Right superior pubic rami fracture Weightbearing as tolerated right lower extremity She is orthopedically cleared for discharge once a discharge plan is secured
[2017-12-02] MEDS: Lactobacillus Acidophilus/L. Spores Tablet PO SCH ×2 (10:17→13:07)
[2017-12-02] MEDS: Isosorbide Mononitrate 60 MG ER 24HR Tablet (Imdur) PO SCH (10:17)
[2017-12-02] MEDS: Insulin NovoLOG Aspart Correctional Sugar Inj SQ SCH ×2 (10:18→13:08)
[2017-12-02] MEDS: amLODIPine 5 MG Tablet PO SCH (10:19)
[2017-12-02] MEDS: Folic Acid 1 MG Tablet PO SCH (10:20)
[2017-12-02] MEDS: Insulin Detemir Inj 1,000 UNIT/10 ML Vial SQ SCH (10:22)
[2017-12-02] MEDS: Polyethylene Glycol 3350 17 GM Packet PO SCH (10:22)
[2017-12-02] MEDS: Senna/Docusate Sodium 8.6/50 MG Tablet PO SCH (10:23)
[2017-12-02] MEDS: Carvedilol 12.5 MG Tablet PO SCH (10:23)
--- NOTE | 2017-12-02 10:44 | P.DS ---
Date of admission: 11/28/17 14:25 Primary care physician: UNKNOWN Anticipated date of discharge: 12/02/17 Brief History from admission: The patient is a 67-year-old female with a past medical history of dementia, diabetes and hypertension who is presenting to the hospital after a fall. The patient says that she picked up her dog, who happens to have a history of seizures, and tripped on something. She said she hit the fireplace on the way down. She said that she felt too weak to get back up. She says her was there when she fell but he has a bad back and was unable to help her up. The patient's called for an ambulance. The patient says she is experiencing 10 out of 10 pain in her right shoulder. She was wondering if she would be having surgery today. Her says she recently had her tooth pulled a couple of days ago and she is on antibiotics for that. The patient says that she has been urinating frequently. DS: Diagnosis - Discharge Diagnosis (1) Pubic ramus fracture Status: Acute (2) Humeral fracture Status: Acute (3) Diabetes Status: Acute (4) HTN (hypertension) Status: Acute (5) Renal insufficiency Status: Acute DS: Medications - Discharge Medications Prescriptions: oxycodone 5 mg PO Q4H PRN #18 tab PRN Reason: Pain Scale 6 To 10 DS: Summary Hospital Course: Fractures S/p mechanical fall at home. Imaging revealed: Comminuted displaced fracture of the humeral head with fracture fragments of the humeral head displaced posteriorly; Right superior pubic ramus fracture, nondisplaced. Orthopedic surgery was consulted. Nonoperative management was advised. The pt was made weightbearing per surgery recommendations. She received pain control with a bowel regimen. She worked with PT/OT. She utilized incentive spirometry. She will follow up with orthopedic surgery in one week. DM Glucose levels have been elevated. On Lantus as an outpt. We increased Levemir to 20 units BID, along with prandial insulin. She was placed on an insulin sliding scale and a diabetic diet. She will resume her home regimen upon discharge. HTN Blood pressure was exacerbated by pain. She received pain control. She received clonidine as needed. We held losartan s/t renal insufficiency, but we will resume at discharge as renal function has improved. We added amlodipine 5 mg daily. The pt will continue Coreg. She will follow up with her PCP. Renal insufficiency/Hyponatremia Improved with IVFs. We will resume losartan at this time. Recent tooth extraction Currently on clindamycin. We resumed her antibiotic regimen. She will need to follow up with her PCP or dentist. - Time Spent with Patient Total time spent providing and/or coordinating discharge services: Greater than 30 minutes - Quality: VTE Deep Vein Thrombosis/Pulmonary Embolism Present on Admission: No Exam Vital signs: Vital Signs 12/01/17 12:00 12/01/17 16:00 12/01/17 20:00 Temperature 97.9 F 98 F 98.8 F Pulse Rate 80 86 76 Respiratory Rate 17 18 19 Blood Pressure 177/80 H 175/79 H 186/82 H Pulse Oximetry 95 95 94 L 12/02/17 00:00 12/02/17 04:00 12/02/17 08:00 Temperature 97.4 F L 98.0 F 97.8 F Pulse Rate 76 73 75 Respiratory Rate 18 18 16 Blood Pressure 173/74 H 185/76 H 165/72 H Pulse Oximetry 94 L 98 97 Intake & Output 12/01/17 12/02/17 12/02/17 18:59 06:59 18:59 Intake Total 1081 / 1081 519 / 519 Output Total 1000 / 1000 Balance 1081 / 1081 -481 / -481 Weight 92 kg Intake: IV 481 / 481 519 / 519 NS Inj 1,000 ML @ 125 mls/hr IV 481 / 481 519 / 519 .CONT .Q8H JÚNIOR Rx#:[id number] Oral 600 / 600 Output: Urine 1000 / 1000 Other: # Voids 5 3 Date of Last Bowel Movement 11/27/17 12/01/17 # Bowel Movements 1 1 Narrative: GENERAL: No acute distress SKIN: Focused skin assessment warm/dry. Pale. HEAD: Atraumatic. Normocephalic. EYES: Pupils equal and round. No scleral icterus. No injection or drainage. ENT: No nasal bleeding or discharge. Mucous membranes pink and moist. NECK: Trachea midline. No JVD. No cervical spine tenderness full painless range of motion of the neck. CARDIOVASCULAR: Regular rate and rhythm. Grade 2 murmur appreciated. RESPIRATORY: No accessory muscle use. Clear to auscultation. Breath sounds equal bilaterally. GASTROINTESTINAL: Abdomen soft, non-tender, nondistended. Hepatic and splenic margins not palpable. MUSCULOSKELETAL: Patient is in a sling. She has tenderness in her right anterior shoulder with limited range of motion due to pain. There is also some minimal tenderness in the right groin. NEUROLOGICAL: Awake and alert. No obvious cranial nerve deficits. Motor grossly within normal limits. Normal speech. Results Procedures completed during hospitalization: None Labs on day of discharge: Labs from last 24 hours 12/02/17 12/02/17 12/02/17 08:21 04:45 04:45 WBC 9.4 RBC 3.61 L Hgb 9.5 L Hct 28.0 L MCV 77.4 L MCH 26.2 L MCHC 33.8 RDW 14.0 Plt Count 220 MPV 7.6 Sodium 137 Potassium 4.5 Chloride 105 Carbon Dioxide 24.8 Anion Gap 7 BUN 28 H Creatinine 1.27 H Estimated GFR 42 L POC Glucose 182 H Random Glucose 139 H Calcium 8.2 L 12/01/17 12/01/17 20:08 17:51 WBC RBC Hgb Hct MCV MCH MCHC RDW Plt Count MPV Sodium Potassium Chloride Carbon Dioxide Anion Gap BUN Creatinine Estimated GFR POC Glucose 231 H 314 H Random Glucose Calcium Discharge Plan - Discharge Disposition Patient Disposition: 03 Discharge to SNF - Discharge Condition Condition: Stable - Discharge Order Discharge Orders: Discharge Order (Routine); Ordered 12/02/17 Ordered By: Jose Hackett Orthopedic Clear for Discharge (Routine); Ordered 12/02/17 Ordered By: Jose Jordan - Discharge Details Anticipated Discharge Date: 12/02/17 - Physicians Team Primary Care Provider: UNKNOWN, Attending Provider: Jose Hackett Other Providers: Jamal Fam MD ; Stalin Mcgee MD - Rxs /Orders / Referrals /Forms Prescriptions: New acidophilus-sporogenes [Acidophilus Ex Str (L. sporog)] 35 million- 25 million cell Tablet 1 tab PO TID RF: 0 amlodipine [Norvasc] 5 mg Tablet 5 mg PO DAILY RF: 0 clindamycin HCl [Cleocin HCl] 150 mg Capsule 150 mg PO Q6HR RF: 0 oxycodone 5 mg Tablet 5 mg PO Q4H PRN (Reason: Pain Scale 6 To 10) Qty: 18 RF: 0 Continue aspirin 81 mg Tablet,Chewable 81 mg PO DAILY carvedilol 12.5 mg Tablet 12.5 mg PO BID folic acid 400 mcg Tablet 0.4 mg PO DAILY furosemide 20 mg Tablet 20 mg PO DAILY insulin glargine [Lantus U-100 Insulin] 100 unit/mL Solution 40 unit SUB-Q DAILY isosorbide mononitrate 60 mg Tablet Extended Release 24 Hr 60 mg PO DAILY levothyroxine 75 mcg Capsule 75 mcg PO DAILY memantine 10 mg Tablet 10 mg PO BID rosuvastatin 40 mg Tablet 40 mg PO DAILY telmisartan 80 mg Tablet 80 mg PO DAILY Referrals: Stalin Mcgee MD [Physician] - See Instructions (1 weeks) UNKNOWN, [Primary Care Provider] - See Instructions (1 week) - Discharge Instructions Additional Instructions: RIGHT LEG WEIGHT BEARING TOLERATED. Keep or make your follow up appointments as directed. Take medications as instructed. - Post Discharge Care Plan Care Plan Goals: Your Health Problems: Goals to Promote Your Health: * To prevent worsening of your condition * To maintain your health at the optimal level Directions to Meet Your Goals: * Take your medications as prescribed * Follow your dietary instruction * Follow activity as directed * Keep your appointments as scheduled * Take your immunizations and boosters as scheduled * If your symptoms worsen call your PCP * If no PCP go to Urgent Care or Emergency Room Smoking is dangerous to your health. Avoid second hand smoke. You may reach the 24-hour crisis hotline for domestic abuse at .
== END 2017-12-02 14:52 ==
LOC: NEDDLT 07:14 → N06 14:25
PROVIDERS: ADMIT Hospitalist; ATTEND Hospitalist

== ENCOUNTER 2018-01-29 14:56 | Inpatient (IN) ==
--- NOTE | 2018-01-29 16:19 | ED ---
HPI General Chief complaint: Weakness Stated complaint: gen weakness Time Seen by Provider: 01/29/18 15:51 Source: patient Mode of arrival: ambulatory Limitations: no limitations History of Present Illness HPI narrative: Patient has her primary care and media/instructional designer in [facility]. They live in [facility] and decided to come here because they have been here before back in November and they like the way that they were treated. Patient' s last medical history includes hysterectomy, hyperlipidemia, hypertension, dementia, diabetes, status post ex lap, status post cholecystectomy, status post and tubal ligation. The patient's most recent history is chronic kidney disease unknown what stage however she is now receiving Procrit for chronic anemia as well as iron and vitamin B12. The patient was in rehab for 13 day. Onset (ago): day(s) (worsening ) Radiation: non-radiation Severity: mild Severity scale (1-10): 4 Related Data Home Medications Medication Instructions Recorded Confirmed aspirin 81 mg PO DAILY 11/28/17 01/29/18 carvedilol 12.5 mg PO BID 11/28/17 01/29/18 folic acid 0.4 mg PO DAILY 11/28/17 01/29/18 furosemide 20 mg PO DAILY 11/28/17 01/29/18 insulin glargine [Lantus U-100 40 unit SUB-Q DAILY 11/28/17 01/29/18 Insulin] isosorbide mononitrate 60 mg PO DAILY 11/28/17 01/29/18 levothyroxine 75 mcg PO DAILY 11/28/17 01/29/18 memantine 10 mg PO BID 11/28/17 01/29/18 rosuvastatin 40 mg PO DAILY 11/28/17 01/29/18 telmisartan 80 mg PO DAILY 11/28/17 01/29/18 Previous Rx's Medication Instructions Recorded oxycodone 5 mg PO Q4H PRN #18 tab 12/02/17 Allergies Allergy/AdvReac Type Severity Reaction Status Date / Time penicillin G Allergy Rash Verified 11/28/17 07:22 [facility] Social History Social History Substance History: No History of Abuse Second Hand Smoke Exposure: No Smoking Status: Never smoker How Often Do You Have a Drink Containing Alcohol: Monthly or less Recent Travel in [facility] within the Last 8 Weeks: No Recent Out of Country Travel within the Last 8 Weeks: No Immunization History Tetanus Immunization: <5 Years Hx Influenza Vaccine This Season: Yes Course Initial Documented Vital Signs Temperature 97.9 F 01/29/18 15:29 Pulse Rate 81 01/29/18 15:29 Respiratory Rate 22 01/29/18 15:29 Blood Pressure 98/55 L 01/29/18 15:29 Pulse Oximetry 98 01/29/18 15:29 Last Documented Vital Signs Temperature 97.9 F 01/29/18 15:29 Pulse Rate 76 01/29/18 15:50 Respiratory Rate 24 01/29/18 15:50 Blood Pressure 136/63 01/29/18 15:50 Pulse Oximetry 100 01/29/18 16:08 Medical Decision Making MDM Narrative Medical decision making narrative: of unknown origin.Per patient she received a recent transfusion as well as iron B12 and Procrit recently by her media/instructional designer. Thus it explains the CBC findings of 12.9 WBC, H&H of 03/16, platelet count of 274, however neutrophilia of 86% Elect lites are all within normal limits with the exception of BUN 43, creatinine 2.3, estimated GFR 17, this puts the patient at stage IV CKD Random glucose elevated at 292, AST 485 previously normal on November 28, 2017 at 17... ALT 387, previously normal on November 28 at 16... Alk phos 136 today, previous level 82 on November 28 Total CPK is elevated at 10,686 Elevation of troponin 0 0.14 Patient's generalized weakness is a combination of non-STEMI, elevated liver enzymes/hepatitis, rhabdomyolysis Medical Screen Exam Complete: Yes Emergency Medical Condition: Yes Medical Records Medical records reviewed: Yes I reviewed the patient's medical records. Lab Data Lab results reviewed: Yes I reviewed the patient's lab results. Result diagrams: 01/29/18 15:50 01/29/18 15:50 Lab Results 01/29/18 01/29/18 01/29/18 Range/Units 15:50 15:50 15:50 WBC 12.9 H (4.0-11.0) th/mm3 RBC 3.94 L (4.00-5.30) mil/mm3 Hgb 10.0 L (11.6-15.3) gm/dL Hct 31.3 L (35.0-46.0) % MCV 79.3 L (80.0-100.0) fL MCH 25.2 L (27.0-34.0) pg MCHC 31.8 L (32.0-36.0) % RDW 15.3 (11.6-17.2) % Plt Count 274 (150-450) th/mm3 MPV 8.0 (7.0-11.0) fL Neut % (Auto) 85.7 H (16.0-70.0) % Lymph % (Auto) 6.8 L (9.0-44.0) % [place] % (Auto) 6.5 (0.0-8.0) % Eos % (Auto) 0.7 (0.0-4.0) % Baso % (Auto) 0.3 (0.0-2.0) % Neut # (Auto) 11.1 H (1.8-7.7) th/mm3 Lymph # (Auto) 0.9 L (1.0-4.8) th/mm3 [place] # (Auto) 0.8 (0.0-0.9) th/mm3 Eos # (Auto) 0.1 (0.0-0.4) th/mm3 Baso # (Auto) 0.0 (0.0-0.2) th/mm3 WBC Differential . Differential Comment Auto diff final Sodium 133 L (136-145) meq/L Potassium 3.5 (3.5-5.1) meq/L Chloride 96 L (98-107) meq/L Carbon Dioxide 22.2 (21.0-32.0) meq/L Anion Gap 15 (5-15) meq/L BUN 43 H (7-18) mg/dL Creatinine 2.83 H (0.50-1.00) mg/dL Estimated GFR 17 L (>89) mL/min Random Glucose 292 H (74-106) mg/dL Calcium 8.8 (8.5-10.1) mg/dL Total Bilirubin 0.9 (0.2-1.0) mg/dL AST 495 H (15-37) U/L ALT 397 H (10-53) U/L Alkaline Phosphatase 136 H (45-117) U/L Troponin I 0.14 H (0.02-0.05) ng/mL Total Protein 7.4 (6.4-8.2) g/dL Albumin 2.8 L (3.4-5.0) g/dL TSH 1.330 (0.358-3.740) uIU/mL Imaging Data Radiologist's impression: Chest X-Ray 01/29/18 15:52 CONCLUSION: Negative examination. ECG Data EKG Prior to Arrival: No Attestation: I personally reviewed and interpreted this ECG as follows: Prior ECG tracings: not available for review Interpretation: Normal sinus rhythm, 73 bpm, first-degree AV block, nonspecific ST-T wave changes, no evidence of any ST elevation ND pattern noted. Discharge Plan Discharge Disposition Patient Disposition: 30 Still Patient Discharge Condition Condition: Fair Discharge Details Diagnosis: Renal insufficiency, Rhabdomyolysis, Non-ST elevated myocardial infarction (non -STEMI), Elevated liver enzymes Physicians Team ED Provider: Ruben Saucedo Primary Care Provider: NON STAFF,PROVIDER Rxs /Orders / Referrals /Forms Prescriptions: No Action carvedilol 12.5 mg Tablet 12.5 mg PO BID RF: 0 folic acid 400 mcg Tablet 0.4 mg PO DAILY RF: 0 isosorbide mononitrate 60 mg Tablet Extended Release 24 Hr 60 mg PO DAILY RF: 0 telmisartan 80 mg Tablet 80 mg PO DAILY RF: 0 furosemide 20 mg Tablet 20 mg PO DAILY RF: 0 rosuvastatin 40 mg Tablet 40 mg PO DAILY RF: 0 memantine 10 mg Tablet 10 mg PO BID RF: 0 levothyroxine 75 mcg Capsule 75 mcg PO DAILY RF: 0 insulin glargine [Lantus U-100 Insulin] 100 unit/mL Solution 40 unit SUB-Q DAILY RF: 0 aspirin 81 mg Tablet,Chewable 81 mg PO DAILY RF: 0 oxycodone 5 mg Tablet 5 mg PO Q4H PRN (Reason: Pain Scale 6 To 10) Qty: 18 RF: 0 Discharge Interventions Interventions: Vital Signs Last Done: 01/29/18 15:50 Status ED Status: With Doctor
[2018-01-29 16:42] LABS: Baso % (Auto) 0.3 % (0.0-2.0); Eos # (Auto) 0.1 th/mm3 (0.0-0.4); Eos % (Auto) 0.7 % (0.0-4.0); Hematocrit 31.3 % (35.0-46.0); Lymph # (Auto) 0.9 th/mm3 (1.0-4.8); Lymph % (Auto) 6.8 % (9.0-44.0); Mean Corpuscular HGB Conc 31.8 % (32.0-36.0); Mean Corpuscular Hemoglobin 25.2 pg (27.0-34.0); Mean Corpuscular Volume 79.3 fL (80.0-100.0); Mono # (Auto) 0.8 th/mm3 (0.0-0.9); Mono % (Auto) 6.5 % (0.0-8.0); Neut # (Auto) 11.1 th/mm3 (1.8-7.7); Neut % (Auto) 85.7 % (16.0-70.0); Platelet Count 274 th/mm3 (150-450); Red Blood Count 3.94 mil/mm3 (4.00-5.30); Red Cell Distribution Width 15.3 % (11.6-17.2); White Blood Count 12.9 th/mm3 (4.0-11.0)
[2018-01-29 16:58] LABS: Alkaline Phosphatase 136 U/L (45-117); Total Protein 7.4 g/dL (6.4-8.2); Troponin I 0.14 ng/mL (0.02-0.05)
[2018-01-29 17:15] LABS: Alanine Aminotransferase 397 U/L (10-53); Albumin 2.8 g/dL (3.4-5.0); Anion Gap 15 meq/L (5-15); Aspartate Aminotransferase 495 U/L (15-37); Blood Urea Nitrogen 43 mg/dL (7-18); Calcium 8.8 mg/dL (8.5-10.1); Carbon Dioxide 22.2 meq/L (21.0-32.0); Chloride 96 meq/L (98-107); Glomerular Filtration Rate 17 mL/min (>89); Glucose,Random 292 mg/dL (74-106); Potassium 3.5 meq/L (3.5-5.1); Sodium 133 meq/L (136-145)
[2018-01-29] MEDS ORDERED: Sodium Chlor 0.9% Inj 500 ML IV.SIG ONE (17:29)
[2018-01-29 17:34] LABS: Bacteria,Urine Few /hpf; Bilirubin,Urine Negative (Negative); Clarity,Urine Turbid (Clear); Color,Urine Red (Yellw/Straw); Glucose,Urine (UA) Negative (Negative); Leukocyte Esterase,Urine Large (Negative); Nitrite,Urine Negative (Negative); Specific Gravity,Urine 1.008 (1.002-1.035); Squamous Epithelial Cell,Urine 3 /hpf (0-5)
[2018-01-29 17:41] LABS: CKMB Percent 1.2 % (0.0-4.0); Creatine Kinase MB 124.7 ng/mL (0.5-3.6)
[2018-01-29] MEDS ORDERED: Bisacodyl 10 MG Supp RECTAL PRN (18:05)
[2018-01-29] MEDS ORDERED: Dextrose 50% in Water 50 ML Vial IV.PUSH PRN (18:16)
[2018-01-29] MEDS: Sod Chloride 0.9% Inj 1,000 ML IV.CONT SCH (20:24)
[2018-01-29 21:16] LABS: Hepatitis A IgM Antibody Nonreactive (Nonreactive); Hepatitits B Surface Antigen Nonreactive (Nonreactive)
[2018-01-29] MEDS: Senna/Docusate Sodium 8.6/50 MG Tablet PO SCH (21:37)
[2018-01-29] MEDS: Carvedilol 12.5 MG Tablet PO SCH (21:37)
[2018-01-29] MEDS: Heparin - SQ 10,000 UNITS/ML Vial SQ SCH (21:38)
[2018-01-29] MEDS: Insulin Detemir Inj 1,000 UNIT/10 ML Vial SQ SCH (21:40)
[2018-01-29] MEDS: Insulin NovoLOG Aspart Correctional Sugar Inj SQ SCH (21:43)
--- NOTE | 2018-01-29 21:55 | ECG ---
Date Performed: 01/29/2018 Time Performed: 17:13:35 PTAGE: 67 years EKG: Sinus rhythm WITH FIRST DEGREE AV BLOCK NONSPECIFIC T-WAVE ABNORMALITY ABNORMAL ECG NO PREVIOUS TRACING DOCTOR: Caroline Cochran Interpretating Date/Time 01/29/2018 21:53:39
[2018-01-29 22:55] LABS: Troponin I 0.17 ng/mL (0.02-0.05)
[2018-01-29 23:07] LABS: Creatine Kinase MB 106.7 ng/mL (0.5-3.6)
[2018-01-30 04:53] LABS: Baso % (Auto) 0.4 % (0.0-2.0); Eos # (Auto) 0.2 th/mm3 (0.0-0.4); Eos % (Auto) 1.5 % (0.0-4.0); Hemoglobin 8.2 gm/dL (11.6-15.3); Lymph # (Auto) 1.5 th/mm3 (1.0-4.8); Lymph % (Auto) 14.4 % (9.0-44.0); Mean Corpuscular HGB Conc 32.6 % (32.0-36.0); Mean Corpuscular Hemoglobin 25.9 pg (27.0-34.0); Mean Corpuscular Volume 79.5 fL (80.0-100.0); Mean Platelet Volume 8.1 fL (7.0-11.0); Mono # (Auto) 0.7 th/mm3 (0.0-0.9); Mono % (Auto) 6.9 % (0.0-8.0); Neut # (Auto) 8.1 th/mm3 (1.8-7.7); Neut % (Auto) 76.8 % (16.0-70.0); Platelet Count 181 th/mm3 (150-450); Red Blood Count 3.15 mil/mm3 (4.00-5.30); Red Cell Distribution Width 15.7 % (11.6-17.2); White Blood Count 10.5 th/mm3 (4.0-11.0)
[2018-01-30] MEDS: Levothyroxine 75 MCG Tablet PO SCH (05:09)
[2018-01-30] MEDS: Sod Chloride 0.9% Inj 1,000 ML IV.CONT SCH ×3 (05:10→19:40)
[2018-01-30 05:23] LABS: Anion Gap 14 meq/L (5-15)
[2018-01-30 05:30] LABS: Alanine Aminotransferase 353 U/L (10-53); Albumin 2.2 g/dL (3.4-5.0); Alkaline Phosphatase 113 U/L (45-117); Aspartate Aminotransferase 415 U/L (15-37); Blood Urea Nitrogen 39 mg/dL (7-18); Calcium 7.6 mg/dL (8.5-10.1); Carbon Dioxide 22.2 meq/L (21.0-32.0); Chloride 103 meq/L (98-107); Glomerular Filtration Rate 19 mL/min (>89); Glucose,Random 243 mg/dL (74-106); Sodium 139 meq/L (136-145); Total Protein 6.2 g/dL (6.4-8.2)
[2018-01-30 05:45] LABS: Potassium 2.9 meq/L (3.5-5.1)
[2018-01-30] MEDS: Heparin - SQ 10,000 UNITS/ML Vial SQ SCH ×2 (08:30→20:10)
[2018-01-30] MEDS: Carvedilol 12.5 MG Tablet PO SCH ×2 (08:30→20:10)
[2018-01-30] MEDS: Isosorbide Mononitrate 60 MG ER 24HR Tablet (Imdur) PO SCH (08:31)
[2018-01-30] MEDS: Senna/Docusate Sodium 8.6/50 MG Tablet PO SCH ×2 (08:31→20:10)
[2018-01-30] MEDS: Insulin Detemir Inj 1,000 UNIT/10 ML Vial SQ SCH ×2 (08:31→20:13)
[2018-01-30] MEDS: Folic Acid 1 MG Tablet PO SCH (08:31)
[2018-01-30] MEDS: Insulin NovoLOG Aspart Correctional Sugar Inj SQ SCH ×4 (08:36→20:13)
[2018-01-30 09:00] LABS: Potassium 3.2 meq/L (3.5-5.1)
[2018-01-30 12:36] LABS: CKMB Percent 1.3 % (0.0-4.0); Creatine Kinase MB 129.4 ng/mL (0.5-3.6)
--- NOTE | 2018-01-30 13:59 | ECG ---
Date Performed: 01/30/2018 Time Performed: 03:23:12 PTAGE: 67 years EKG: Sinus rhythm with 1st degree A-V block Lateral ST-T changes are nonspecific Abnormal ECG PREVIOUS TRACING : 01/29/2018 21.40 DOCTOR: Caroline Cochran Interpretating Date/Time 01/30/2018 13:57:30
--- NOTE | 2018-01-30 14:04 | ECG ---
Date Performed: 01/29/2018 Time Performed: 21:40:00 PTAGE: 67 years EKG: Sinus arrhythmia Lateral ST-T changes are nonspecific Borderline ECG PREVIOUS TRACING : 01/29/2018 17.13 DOCTOR: Caroline Cochran Interpretating Date/Time 01/30/2018 14:01:24
[2018-01-31] MEDS: Sod Chloride 0.9% Inj 1,000 ML IV.CONT SCH ×5 (01:23→20:18)
[2018-01-31] MEDS: Levothyroxine 75 MCG Tablet PO SCH (06:02)
[2018-01-31 07:20] LABS: Alanine Aminotransferase 367 U/L (10-53); Anion Gap 11 meq/L (5-15); Aspartate Aminotransferase 385 U/L (15-37); Blood Urea Nitrogen 41 mg/dL (7-18); Carbon Dioxide 19.9 meq/L (21.0-32.0); Chloride 109 meq/L (98-107); Glomerular Filtration Rate 19 mL/min (>89); Glucose,Random 164 mg/dL (74-106); Potassium 3.6 meq/L (3.5-5.1); Sodium 140 meq/L (136-145)
[2018-01-31 07:22] LABS: Alkaline Phosphatase 107 U/L (45-117); Total Protein 5.9 g/dL (6.4-8.2)
[2018-01-31 07:50] LABS: Creatine Kinase 8537 U/L (26-192)
[2018-01-31 08:10] LABS: CKMB Percent 1.3 % (0.0-4.0); Creatine Kinase MB 113.1 ng/mL (0.5-3.6)
[2018-01-31] MEDS: Senna/Docusate Sodium 8.6/50 MG Tablet PO SCH ×2 (08:15→21:24)
[2018-01-31] MEDS: Folic Acid 1 MG Tablet PO SCH (08:15)
[2018-01-31] MEDS: Isosorbide Mononitrate 60 MG ER 24HR Tablet (Imdur) PO SCH (08:15)
[2018-01-31] MEDS: Heparin - SQ 10,000 UNITS/ML Vial SQ SCH ×2 (08:15→21:24)
[2018-01-31] MEDS: Carvedilol 12.5 MG Tablet PO SCH ×2 (08:16→21:24)
[2018-01-31] MEDS: Insulin NovoLOG Aspart Correctional Sugar Inj SQ SCH ×4 (08:21→21:25)
[2018-01-31] MEDS: Insulin Detemir Inj 1,000 UNIT/10 ML Vial SQ SCH (21:24)
[2018-02-01] MEDS: Sod Chloride 0.9% Inj 1,000 ML IV.CONT SCH ×2 (01:41→06:38)
[2018-02-01] MEDS: Levothyroxine 75 MCG Tablet PO SCH (05:42)
[2018-02-01] MEDS: Carvedilol 12.5 MG Tablet PO SCH ×2 (08:44→21:47)
[2018-02-01] MEDS: Heparin - SQ 10,000 UNITS/ML Vial SQ SCH ×2 (08:44→21:47)
[2018-02-01] MEDS: Folic Acid 1 MG Tablet PO SCH (08:45)
[2018-02-01] MEDS: Isosorbide Mononitrate 60 MG ER 24HR Tablet (Imdur) PO SCH (08:45)
[2018-02-01] MEDS: Senna/Docusate Sodium 8.6/50 MG Tablet PO SCH ×2 (08:45→21:46)
[2018-02-01] MEDS: Insulin NovoLOG Aspart Correctional Sugar Inj SQ SCH ×4 (08:46→21:57)
[2018-02-01 10:29] LABS: CKMB Percent 1.2 % (0.0-4.0); Creatine Kinase MB 112.3 ng/mL (0.5-3.6)
[2018-02-01] MEDS: Sodium Bicarbonate 8.4% Inj 150 MEQ in Water for Inj, Sterile 850 ML IV.CONT SCH ×2 (14:14→22:12)
[2018-02-01 14:41] LABS: Calcium 7.9 mg/dL (8.5-10.1); Carbon Dioxide 20.5 meq/L (21.0-32.0); Potassium 3.9 meq/L (3.5-5.1)
[2018-02-01 15:39] LABS: CKMB Percent 1.1 % (0.0-4.0); Creatine Kinase MB 128.7 ng/mL (0.5-3.6)
[2018-02-01] MEDS: Insulin Detemir Inj 1,000 UNIT/10 ML Vial SQ SCH (21:56)
[2018-02-02] MEDS: Sod Chloride 0.9% Inj 1,000 ML IV.CONT SCH (01:57)
[2018-02-02 05:14] LABS: Baso # (Auto) 0.1 th/mm3 (0.0-0.2); Baso % (Auto) 0.7 % (0.0-2.0); Eos # (Auto) 0.2 th/mm3 (0.0-0.4); Eos % (Auto) 2.8 % (0.0-4.0); Hematocrit 24.6 % (35.0-46.0); Hemoglobin 8.1 gm/dL (11.6-15.3); Lymph # (Auto) 1.2 th/mm3 (1.0-4.8); Lymph % (Auto) 14.3 % (9.0-44.0); Mean Corpuscular HGB Conc 33.1 % (32.0-36.0); Mean Corpuscular Hemoglobin 26.1 pg (27.0-34.0); Mean Corpuscular Volume 78.8 fL (80.0-100.0); Mean Platelet Volume 7.5 fL (7.0-11.0); Mono # (Auto) 0.5 th/mm3 (0.0-0.9); Mono % (Auto) 5.6 % (0.0-8.0); Neut # (Auto) 6.3 th/mm3 (1.8-7.7); Neut % (Auto) 76.6 % (16.0-70.0); Platelet Count 182 th/mm3 (150-450); Red Blood Count 3.12 mil/mm3 (4.00-5.30); White Blood Count 8.2 th/mm3 (4.0-11.0)
[2018-02-02] MEDS: Levothyroxine 75 MCG Tablet PO SCH (05:29)
[2018-02-02] MEDS: Sodium Bicarbonate 8.4% Inj 150 MEQ in Water for Inj, Sterile 850 ML IV.CONT SCH ×4 (05:30→23:20)
[2018-02-02 05:44] LABS: Albumin 1.9 g/dL (3.4-5.0); Calcium 7.8 mg/dL (8.5-10.1); Carbon Dioxide 24.8 meq/L (21.0-32.0); Magnesium 1.5 mg/dL (1.5-2.5); Potassium 3.3 meq/L (3.5-5.1)
[2018-02-02 05:46] LABS: Phosphorus 3.3 mg/dL (2.5-4.9)
[2018-02-02] MEDS: Insulin NovoLOG Aspart Correctional Sugar Inj SQ SCH ×4 (08:53→21:32)
[2018-02-02] MEDS: Heparin - SQ 10,000 UNITS/ML Vial SQ SCH ×2 (08:54→21:26)
[2018-02-02] MEDS: Isosorbide Mononitrate 60 MG ER 24HR Tablet (Imdur) PO SCH (08:54)
[2018-02-02] MEDS: Carvedilol 12.5 MG Tablet PO SCH ×2 (08:55→21:26)
[2018-02-02] MEDS: Senna/Docusate Sodium 8.6/50 MG Tablet PO SCH ×2 (08:55→21:26)
[2018-02-02] MEDS: Folic Acid 1 MG Tablet PO SCH (08:55)
[2018-02-02] MEDS: Acetaminophen 325 MG Tablet PO PRN (08:56)
[2018-02-02 10:10] LABS: CKMB Percent 0.8 % (0.0-4.0); Creatine Kinase MB 77.6 ng/mL (0.5-3.6)
[2018-02-02] MEDS: Insulin Detemir Inj 1,000 UNIT/10 ML Vial SQ SCH (21:26)
[2018-02-03] MEDS: Sodium Bicarbonate 8.4% Inj 150 MEQ in Water for Inj, Sterile 850 ML IV.CONT SCH ×4 (02:00→16:31)
[2018-02-03 05:12] LABS: Baso % (Auto) 0.4 % (0.0-2.0); Eos # (Auto) 0.2 th/mm3 (0.0-0.4); Eos % (Auto) 2.6 % (0.0-4.0); Hematocrit 25.4 % (35.0-46.0); Hemoglobin 8.5 gm/dL (11.6-15.3); Lymph # (Auto) 1.3 th/mm3 (1.0-4.8); Lymph % (Auto) 15.2 % (9.0-44.0); Mean Corpuscular HGB Conc 33.4 % (32.0-36.0); Mean Corpuscular Volume 77.9 fL (80.0-100.0); Mean Platelet Volume 7.4 fL (7.0-11.0); Mono # (Auto) 0.6 th/mm3 (0.0-0.9); Mono % (Auto) 6.7 % (0.0-8.0); Neut # (Auto) 6.3 th/mm3 (1.8-7.7); Neut % (Auto) 75.1 % (16.0-70.0); Platelet Count 196 th/mm3 (150-450); Red Blood Count 3.26 mil/mm3 (4.00-5.30); Red Cell Distribution Width 16.1 % (11.6-17.2); White Blood Count 8.4 th/mm3 (4.0-11.0)
[2018-02-03] MEDS: Levothyroxine 75 MCG Tablet PO SCH (05:24)
[2018-02-03 06:05] LABS: Albumin 1.9 g/dL (3.4-5.0); Calcium 7.8 mg/dL (8.5-10.1); Magnesium 1.4 mg/dL (1.5-2.5); Phosphorus 2.8 mg/dL (2.5-4.9)
[2018-02-03 07:02] LABS: CKMB Percent 0.5 % (0.0-4.0); Creatine Kinase MB 26.4 ng/mL (0.5-3.6)
[2018-02-03] MEDS: Senna/Docusate Sodium 8.6/50 MG Tablet PO SCH ×2 (09:05→20:34)
[2018-02-03] MEDS: Insulin NovoLOG Aspart Correctional Sugar Inj SQ SCH ×4 (09:06→20:37)
[2018-02-03] MEDS: Carvedilol 12.5 MG Tablet PO SCH ×2 (09:06→20:34)
[2018-02-03] MEDS: Isosorbide Mononitrate 60 MG ER 24HR Tablet (Imdur) PO SCH (09:06)
[2018-02-03] MEDS: Folic Acid 1 MG Tablet PO SCH (09:06)
[2018-02-03] MEDS: Heparin - SQ 10,000 UNITS/ML Vial SQ SCH ×2 (09:07→20:35)
[2018-02-03] MEDS: Mag Sulf 1 gm/100 ml Premix 100 ML IV.SIG SCH ×2 (10:42→11:42)
[2018-02-03] MEDS: Insulin Detemir Inj 1,000 UNIT/10 ML Vial SQ SCH (20:35)
[2018-02-04] MEDS: Sodium Bicarbonate 8.4% Inj 150 MEQ in Water for Inj, Sterile 850 ML IV.CONT SCH ×2 (02:00→06:16)
[2018-02-04 05:12] LABS: Baso % (Auto) 0.6 % (0.0-2.0); Eos # (Auto) 0.3 th/mm3 (0.0-0.4); Eos % (Auto) 3.5 % (0.0-4.0); Hematocrit 26.4 % (35.0-46.0); Hemoglobin 8.6 gm/dL (11.6-15.3); Lymph # (Auto) 1.5 th/mm3 (1.0-4.8); Lymph % (Auto) 18.4 % (9.0-44.0); Mean Corpuscular HGB Conc 32.5 % (32.0-36.0); Mean Corpuscular Hemoglobin 25.8 pg (27.0-34.0); Mean Corpuscular Volume 79.3 fL (80.0-100.0); Mean Platelet Volume 7.5 fL (7.0-11.0); Mono # (Auto) 0.6 th/mm3 (0.0-0.9); Neut # (Auto) 5.7 th/mm3 (1.8-7.7); Neut % (Auto) 70.5 % (16.0-70.0); Platelet Count 200 th/mm3 (150-450); Red Blood Count 3.33 mil/mm3 (4.00-5.30); Red Cell Distribution Width 16.3 % (11.6-17.2)
[2018-02-04 05:55] LABS: Carbon Dioxide 39.3 meq/L (21.0-32.0); Phosphorus 2.7 mg/dL (2.5-4.9)
[2018-02-04 05:59] LABS: Potassium 2.8 meq/L (3.5-5.1)
[2018-02-04 06:17] LABS: CKMB Percent 0.4 % (0.0-4.0); Creatine Kinase MB 10.4 ng/mL (0.5-3.6)
[2018-02-04] MEDS: Levothyroxine 75 MCG Tablet PO SCH (06:17)
[2018-02-04] MEDS ORDERED: Potassium Chloride 25 MEQ Effervescent Tablet PO ONE (06:19)
[2018-02-04] MEDS: Potassium Chlor 10 mEq Premix 10 MEQ/100 ML PIGGYBACK IV.SIG SCH ×2 (06:53→08:45)
[2018-02-04] MEDS: Folic Acid 1 MG Tablet PO SCH (08:46)
[2018-02-04] MEDS: Insulin NovoLOG Aspart Correctional Sugar Inj SQ SCH ×4 (08:46→20:24)
[2018-02-04] MEDS: Isosorbide Mononitrate 60 MG ER 24HR Tablet (Imdur) PO SCH (08:46)
[2018-02-04] MEDS: Carvedilol 12.5 MG Tablet PO SCH ×2 (08:47→20:23)
[2018-02-04] MEDS: Senna/Docusate Sodium 8.6/50 MG Tablet PO SCH ×2 (08:47→20:23)
[2018-02-04] MEDS: Heparin - SQ 10,000 UNITS/ML Vial SQ SCH ×2 (08:47→20:23)
[2018-02-04] MEDS ORDERED: acetaZOLAMIDE 250 MG TABLET PO ONE (10:00)
[2018-02-04] MEDS ORDERED: Spironolactone 25 MG Tablet PO ONE (10:12)
[2018-02-04] MEDS: Insulin Detemir Inj 1,000 UNIT/10 ML Vial SQ SCH (20:24)
[2018-02-05] MEDS: Levothyroxine 75 MCG Tablet PO SCH (05:06)
[2018-02-05 05:52] LABS: Baso % (Auto) 0.6 % (0.0-2.0); Eos # (Auto) 0.3 th/mm3 (0.0-0.4); Eos % (Auto) 4.2 % (0.0-4.0); Hematocrit 28.2 % (35.0-46.0); Hemoglobin 8.9 gm/dL (11.6-15.3); Lymph # (Auto) 1.4 th/mm3 (1.0-4.8); Lymph % (Auto) 17.2 % (9.0-44.0); Mean Corpuscular HGB Conc 31.6 % (32.0-36.0); Mean Corpuscular Volume 82.2 fL (80.0-100.0); Mono # (Auto) 0.6 th/mm3 (0.0-0.9); Mono % (Auto) 7.1 % (0.0-8.0); Neut # (Auto) 5.7 th/mm3 (1.8-7.7); Neut % (Auto) 70.9 % (16.0-70.0); Platelet Count 213 th/mm3 (150-450); Red Blood Count 3.43 mil/mm3 (4.00-5.30); Red Cell Distribution Width 16.8 % (11.6-17.2); White Blood Count 8.1 th/mm3 (4.0-11.0)
[2018-02-05 06:22] LABS: Albumin 2.1 g/dL (3.4-5.0); Calcium 8.3 mg/dL (8.5-10.1); Carbon Dioxide 29.4 meq/L (21.0-32.0); Magnesium 1.9 mg/dL (1.5-2.5); Phosphorus 3.3 mg/dL (2.5-4.9); Potassium 4.1 meq/L (3.5-5.1)
[2018-02-05] MEDS: Folic Acid 1 MG Tablet PO SCH (08:49)
[2018-02-05] MEDS: Isosorbide Mononitrate 60 MG ER 24HR Tablet (Imdur) PO SCH (08:49)
[2018-02-05] MEDS: Carvedilol 12.5 MG Tablet PO SCH (08:49)
[2018-02-05] MEDS: Senna/Docusate Sodium 8.6/50 MG Tablet PO SCH (08:50)
[2018-02-05] MEDS: Heparin - SQ 10,000 UNITS/ML Vial SQ SCH (08:50)
[2018-02-05] MEDS: Insulin NovoLOG Aspart Correctional Sugar Inj SQ SCH ×2 (08:50→11:50)
[2018-02-05] MEDS: Acetaminophen 325 MG Tablet PO PRN (11:49)
== END 2018-02-05 13:41 ==
LOC: NEPC 14:56 → NEDA 17:40 → HCIS 21:25 → N07 02-01 03:10
PROVIDERS: ADMIT Internal Medicine; ATTEND Internal Medicine